=== PATIENT | female | born 1945 | race Caucasian/White ===

== ENCOUNTER → 2016-11-02 | Outpatient (CLI) | payer OTHER ==
--- NOTE | 2016-11-02 11:41 | MA ---
Screening Digital Mammogram With iCAD Analysis Clinical Indications: Routine screening. The patient has had right breast cancer treated with mastect roni. A sister was diagnosed with breast cancer in her 50s. Technique: Standard cephalocaudal projection of the left breast is obtained. Digital breast tomosynth esis was performed in the MLO projection with reconstruction at 1.0 mm slice thickness and composite MLO views reconstructed. This examination is processed by the iCAD computer aided detection system. Comparison: October 2015, September 2014, September 2013, August 2011, August 2010, August 2009. Breast density: Type B; Scattered fibroglandular densities. Findings: CAD was reviewed. No masses, suspicious calcifications or secondary signs of malignancy are seen. There has been no significant change in the appearance of the left breast. Impression: Negative mammogram. BI-RADS 1. Recommendation: Routine mammographic screening in one year as long as physical examination is negativ [facility] will send a result letter to the patient. Negative mammography should not preclude additional workup of a clinically suspicious finding. The patient's information is entered into a reminder system with a target due date for her next mammo gram.
== END ==
LOC: FIMAGING 09:14
DX: Z12.31 Encounter for screening mammogram for malignant neoplasm of breast (principal); Z85.3 Personal history of malignant neoplasm of breast; Z80.3 Family history of malignant neoplasm of breast
CPT/HCPCS: G0202-52

== ENCOUNTER → 2017-11-15 | Outpatient (CLI) | payer OTHER | LOC: FIMAGING 09:10 | PROVIDERS: ATTEND Internal Medicine | DX: Z12.31 Encounter for screening mammogram for malignant neoplasm of breast (principal); Z90.11 Acquired absence of right breast and nipple; Z85.3 Personal history of malignant neoplasm of breast ==

== ENCOUNTER → 2018-11-28 | Outpatient (CLI) | payer OTHER | LOC: FIMAGING 12:39 | PROVIDERS: ATTEND Internal Medicine | DX: Z12.31 Encounter for screening mammogram for malignant neoplasm of breast (principal); Z85.3 Personal history of malignant neoplasm of breast; Z90.11 Acquired absence of right breast and nipple ==